=== PATIENT | female | born 1945 | race Caucasian/White ===

== ENCOUNTER 2016-04-30 10:51 | Outpatient (CLI) | payer MEDICARE, OTHER | END 2016-04-30 10:52 | disposition home or self-care (01) | DX: R10.9 Unspecified abdominal pain (principal) ==

== ENCOUNTER 2016-05-11 09:09 | Outpatient (CLI) | payer MEDICARE, OTHER ==
[2016-05-11] MEDS ORDERED: IOPAMIDOL-300 100 ML VIAL IVP ONE (10:45)
[2016-05-11] MEDS ORDERED: IOPAMIDOL-300 50 ML VIAL PO ONE (10:45)
== END 2016-05-11 09:10 | disposition home or self-care (01) ==
DX: R10.9 Unspecified abdominal pain (principal); G89.29 Other chronic pain; Z90.710 Acquired absence of both cervix and uterus
CPT/HCPCS: 74177; Q9967

== ENCOUNTER 2017-03-04 22:45 | Outpatient (CLI) | payer MEDICARE, OTHER | END 2017-03-04 22:46 | disposition critical access hospital (66) | LOC: EMS 22:45 | PROVIDERS: ATTEND Surgery | DX: R04.0 Epistaxis (principal) | CPT/HCPCS: A0425; A0429 ==

== ENCOUNTER 2017-03-04 22:59 | Emergency (ER) | payer MEDICARE, OTHER ==
--- NOTE | 2017-03-04 23:32 | ED Physician Documentation ---
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 No: Chest pain, Palpitations, Diaphoresis, Dyspnea, Abdominal pain, Nausea / vomiting Associated symptoms: None Contributing factors: Just stood up Injury occurred: None Pain level max: 0 Pain level now: 0 Similar symptoms before: Has not had sx before Recently seen: Not recently seen - Additional information Additional information: while at home and at rest, patient had sudden onset atraumatic left nare epistaxis. She then got up and went into the bathroom, applied pressure to the nose, but then felt lightheaded, generalized weakness, and felt like she was going to pass out. Family was present and they witnessed her then pass out, did not fall (went to ground slowly and controlled), LOC approximately 30 seconds with subsequent rapid return to baseline level of consciousness and asymptomatic since that time, arrives asymptomatic to ED Review of Systems Eyes: reports: Reviewed and negative Nose: reports: Epistaxis Cardiac: reports: Reviewed and negative Respiratory: reports: Reviewed and negative GI: reports: Reviewed and negative Neurologic: reports: Generalized weakness (pre-syncopal but then resolved), Syncope, LOC. denies: Focal weakness, Numbness, Seizure, Confused, Altered mental status, Headache, Head injury PD PAST MEDICAL HISTORY - Past Medical History Past Medical History: Yes Cardiovascular: Hypertension, High cholesterol, Valve disorder Respiratory: None Endocrine/Autoimmune: None GI: None WEB APPLICATION TESTER: None : None HEENT: None Psych: None Musculoskeletal: None Derm: None - Past Surgical History /WEB APPLICATION TESTER: Hysterectomy HEENT: Tonsil/Adenoidectomy - Present Medications Home Medications: Ambulatory Orders Medication Instructions Recorded Confirmed Aspirin 81 mg PO DAILY 03/04/17 03/04/17 Calcium Carbonate [[id number]] 1,000 mg PO DAILY 03/04/17 03/04/17 Cholecalciferol (Vitamin D3) 1,000 unit PO DAILY 03/04/17 03/04/17 [Vitamin D3] Diltiazem HCl [Diltiazem 24Hr ER] 180 mg PO DAILY 03/04/17 03/04/17 Lovastatin 20 mg PO DAILY 03/04/17 03/04/17 Magnesium Oxide [Magnesium] 500 mg PO DAILY 03/04/17 03/04/17 Potassium Chloride 20 meq PO DAILY 03/04/17 03/04/17 hydroCHLOROthiazide 25 mg PO DAILY 03/04/17 03/04/17 [Hydrochlorothiazide] - Allergies Allergies/Adverse Reactions: Allergies Allergy/AdvReac Type Severity Reaction Status Date / Time Penicillins Allergy Rash Verified 03/04/17 23:20 acetaminophen [From Vicodin] AdvReac Unknown Verified 03/04/17 23:20 atenolol AdvReac Dizziness Verified 03/04/17 23:20 epinephrine AdvReac Anxiety Verified 03/04/17 23:20 erythromycin base AdvReac Nausea Verified 03/04/17 23:20 hydrocodone [From Vicodin] AdvReac Unknown Verified 03/04/17 23:20 hydromorphone [From Dilaudid] AdvReac Dizziness Verified 03/04/17 23:20 phenylephrine AdvReac Anxiety Verified 03/04/17 23:20 procaine [From Novocain] AdvReac Anxiety Verified 03/04/17 23:20 propoxyphene [From Darvon] AdvReac Unknown Verified 03/04/17 23:20 sertraline [From Zoloft] AdvReac Cramps Verified 03/04/17 23:20 Sulfa (Sulfonamide AdvReac Edema Verified 03/04/17 23:20 Antibiotics) - Social History Does the pt smoke?: No Smoking Status: Never smoker Does the pt drink ETOH?: Yes Does the pt have substance abuse?: No - Immunizations Immunizations are current?: Yes PD ED PE NORMAL - Vitals Vital signs reviewed: Yes - General General: Alert and oriented X 3, No acute distress, Well developed/nourished - HEENT HEENT: Moist mucous membranes - Neck Neck: Supple, no meningeal sign, No bony TTP - Cardiac Cardiac: RRR - Respiratory Respiratory: No respiratory distress, Clear bilaterally - Abdomen Abdomen: Soft, Non tender - Derm Derm: Normal color, Warm and dry - Neuro Neuro: Alert and oriented X 3, seismic survey assistant 2-12 intact, No motor deficit, No sensory deficit, Normal speech Eye Opening: Spontaneous Motor: Obeys Commands Verbal: Oriented GCS Score: 15 PD ED PE EXPANDED - HEENT HEENT: Other (no active epistaxis noted. there is a punctate area left septum with trace dried/crusted blood but no active bleeding) - Cardiac Cardiac: Murmur Present (2/6 KATHRYN at cardiac base ) Results - Vitals Vitals: Vital Signs - 24 hr 03/04/17 03/05/17 03/05/17 23:04 00:21 01:10 Temperature 36.2 C L Heart Rate 74 75 73 Respiratory 16 15 20 Rate Blood Pressure 151/81 H 141/70 H 140/73 H O2 Saturation 91 L 98 96 Oxygen O2 Source Room air - Labs Labs: Laboratory Tests 03/05/17 03/05/17 03/05/17 00:15 00:15 00:15 WBC 8.7 RBC 4.10 L Hgb 12.5 Hct 36.8 L MCV 89.8 MCH 30.5 MCHC 33.9 RDW 13.2 Plt Count 251 MPV 8.0 Neut # 6.6 Lymph # 1.4 L [place] # 0.5 Eos # 0.1 Baso # 0.1 Absolute Nucleated RBC 0.00 Nucleated RBC % 0.0 Sodium 136 Potassium 3.3 L Chloride 100 L Carbon Dioxide 25 Anion Gap 11.0 BUN 20 Creatinine 0.7 Estimated GFR (MDRD) 83 L Glucose 112 H Calcium 8.9 Troponin I < 0.04 PD MEDICAL DECISION MAKING - ED course Complexity details: reviewed results, re-evaluated patient, considered differential, d/w patient ED course: syncope with unremarkable ED testing, and epistaxis that did not reoccur during ED stay. Departure - Departure Disposition: 01 Home, Self Care Clinical Impression: Hypokalemia, Syncope, Epistaxis Condition: Good Instructions: ED Nosebleed, ED Potassium Deficiency, ED Fainting Unkn Cause Discharge Date/Time: 03/05/17 01:20
[2017-03-05 00:25] LABS: BASOPHILS # (AUTO) 0.1 10^3/uL (0.0-0.1); BASOPHILS % (AUTO) 0.8 %; EOSINOPHILS # (AUTO) 0.1 10^3/uL (0.0-0.7); EOSINOPHILS % (AUTO) 1.2 %; HCT - HEMATOCRIT 36.8 % (37.0-47.0); HGB - HEMOGLOBIN 12.5 g/dL (12.0-16.0); LYMPHOCYTES # (AUTO) 1.4 10^3/uL (1.5-3.5); LYMPHOCYTES % (AUTO) 16.1 %; MEAN CORPUSCULAR HEMOGLOBIN 30.5 pg (27.0-31.0); MEAN CORPUSCULAR HGB CONC 33.9 g/dL (32.0-36.0); MEAN CORPUSCULAR VOLUME 89.8 fL (81.0-99.0); MONOCYTES # (AUTO) 0.5 10^3/uL (0.0-1.0); MONOCYTES % (AUTO) 5.7 %; NEUTROPHILS # (AUTO) 6.6 10^3/uL (1.5-6.6); NEUTROPHILS % (AUTO) 76.2 %; RED CELL DISTRIBUTION WIDTH 13.2 % (12.0-15.0); UNCORRECTED WHITE BLOOD COUNT 8.7 x10^3/uL; WHITE BLOOD COUNT 8.7 x10^3/uL (4.8-10.8)
--- NOTE | 2017-03-05 00:31 | XRAY Preliminary Report ---
Exam: XR CHEST 2 VIEW PA/LAT IMPRESSION: No acute cardiopulmonary abnormality demonstrated. [facility] SITE ID: [id number]
[2017-03-05 00:32] LABS: CALCIUM 8.9 mg/dL (8.5-10.3); CREATININE 0.7 mg/dL (0.4-1.0); POTASSIUM 3.3 mmol/L (3.5-5.0)
--- NOTE | 2017-03-05 00:33 | XRAY Report ---
EXAM: CHEST RADIOGRAPHY EXAM DATE: 03/05/2017 12:06 AM. CLINICAL HISTORY: Syncope. COMPARISON: None. TECHNIQUE: 2 views. FINDINGS: Lungs/Pleura: No focal opacities evident. No pleural effusion. No pneumothorax. Normal volumes. Mediastinum: Heart and mediastinal contours are unremarkable. Other: Right upper quadrant clips indicate prior cholecystectomy. IMPRESSION: No acute cardiopulmonary abnormality demonstrated. [facility] Referring Provider Line: [phone] SITE ID: [id number]
[2017-03-05] MEDS ORDERED: POTASSIUM BICARB 25 MEQ TABLET PO STA (00:55)
[2017-03-05] MEDS ORDERED: POTASSIUM BICARB 25 MEQ TABLET PO ONE (01:08)
[2017-03-05 01:11] VITALS: BP 140/73
== END 2017-03-05 01:20 | disposition home or self-care (01) ==
LOC: ED 22:59
DX: R55 Syncope and collapse (principal); R04.0 Epistaxis; E87.6 Hypokalemia; I10 Essential (primary) hypertension; E78.00 Pure hypercholesterolemia, unspecified; Z79.82 Long term (current) use of aspirin
CPT/HCPCS: 36415; 71020; 80048; 84484; 85025; 93005; 99284; A9270

== ENCOUNTER 2017-03-06 04:28 | Emergency (ER) | payer MEDICARE, OTHER ==
--- NOTE | 2017-03-06 04:43 | ED Physician Documentation ---
PD HPI HEENT - Stated complaint Stated Complaint: BLOODY NOSE - Chief complaint Chief Complaint: General - History obtained from History obtained from: Patient - History of Present Illness Timing - onset: Today Timing - details: Abrupt onset Pain level now: 0 Location: Nose Improves: Nothing Worsens: Other (no exacerbating factors) Recently seen: Emergency Dept - Additional information Additional information: T + R 2 days ago for epistaxis immediately followed by syncopal episode. she returns st this time due to recurrence of epistaxis Review of Systems Constitutional: denies: Fever Nose: reports: Epistaxis. denies: Rhinorrhea / runny nose, Congestion, Sinus pressure / pain Throat: denies: Sore throat PD PAST MEDICAL HISTORY - Past Medical History Cardiovascular: Hypertension, High cholesterol, Valve disorder Respiratory: None Endocrine/Autoimmune: None GI: None PIPE CHANGER: None : None HEENT: None Psych: None Musculoskeletal: None Derm: None - Past Surgical History /PIPE CHANGER: Hysterectomy HEENT: Tonsil/Adenoidectomy - Present Medications Home Medications: Ambulatory Orders Medication Instructions Recorded Confirmed Aspirin 81 mg PO DAILY 03/04/17 03/04/17 Calcium Carbonate [[id number]] 1,000 mg PO DAILY 03/04/17 03/04/17 Cholecalciferol (Vitamin D3) 1,000 unit PO DAILY 03/04/17 03/04/17 [Vitamin D3] Diltiazem HCl [Diltiazem 24Hr ER] 180 mg PO DAILY 03/04/17 03/04/17 Lovastatin 20 mg PO DAILY 03/04/17 03/04/17 Magnesium Oxide [Magnesium] 500 mg PO DAILY 03/04/17 03/04/17 Potassium Chloride 20 meq PO DAILY 03/04/17 03/04/17 hydroCHLOROthiazide 25 mg PO DAILY 03/04/17 03/04/17 [Hydrochlorothiazide] - Allergies Allergies/Adverse Reactions: Allergies Allergy/AdvReac Type Severity Reaction Status Date / Time Penicillins Allergy Rash Verified 03/04/17 23:20 acetaminophen [From Vicodin] AdvReac Unknown Verified 03/04/17 23:20 atenolol AdvReac Dizziness Verified 03/04/17 23:20 epinephrine AdvReac Anxiety Verified 03/04/17 23:20 erythromycin base AdvReac Nausea Verified 03/04/17 23:20 hydrocodone [From Vicodin] AdvReac Unknown Verified 03/04/17 23:20 hydromorphone [From Dilaudid] AdvReac Dizziness Verified 03/04/17 23:20 phenylephrine AdvReac Anxiety Verified 03/04/17 23:20 procaine [From Novocain] AdvReac Anxiety Verified 03/04/17 23:20 propoxyphene [From Darvon] AdvReac Unknown Verified 03/04/17 23:20 sertraline [From Zoloft] AdvReac Cramps Verified 03/04/17 23:20 Sulfa (Sulfonamide AdvReac Edema Verified 03/04/17 23:20 Antibiotics) - Social History Does the pt smoke?: No Smoking Status: Never smoker Does the pt drink ETOH?: Yes Does the pt have substance abuse?: No - Immunizations Immunizations are current?: Yes PD ED PE NORMAL - Vitals Vital signs reviewed: Yes - General General: Alert and oriented X 3, No acute distress, Well developed/nourished - HEENT HEENT: Moist mucous membranes, Pharynx benign PD ED PE EXPANDED - HEENT HEENT: Left nares epistaxis Results - Vitals Vitals: Oxygen O2 Source Room air Procedures - Epistaxis Site: Left Preparation: Afrin, Lidocaine Treatment: Silver Nitrate, Anterior rhinorocket Other: Other (unsuccessful attempt with silver nitrate (bleeding continued), and thus 4.5 rhinorocket placed which resulted in good. sustained hemostasis for remainder of ED stay (observed for 20 esha) PD MEDICAL DECISION MAKING - ED course Complexity details: reviewed old records, re-evaluated patient, considered differential, d/w patient Departure - Departure Disposition: 01 Home, Self Care Clinical Impression: Epistaxis Condition: Good Instructions: ED Nosebleed, ED Nasal Packing Anterior Removable Comments: Follow up with your primary care physician in 3-5 days for removal of the packing. Discharge Date/Time: 03/06/17 06:26
[2017-03-06] MEDS ORDERED: LIDOCAINE VISCOUS 2% 15 ML UDC MM ONE (04:46)
[2017-03-06] MEDS ORDERED: OXYMETAZOLINE NASAL SPRAY NAS ONE (04:46)
[2017-03-06 06:28] VITALS: BP 154/78
== END 2017-03-06 06:26 | disposition home or self-care (01) ==
LOC: ED 04:28
DX: R04.0 Epistaxis (principal); I10 Essential (primary) hypertension; E78.00 Pure hypercholesterolemia, unspecified; I38 Endocarditis, valve unspecified; Z79.82 Long term (current) use of aspirin
CPT/HCPCS: 30901; 99282; 99283; A9270

== ENCOUNTER 2017-03-22 08:33 | Outpatient (CLI) | payer MEDICARE, OTHER ==
[2017-03-22 13:33] LABS: BASOPHILS % (AUTO) 0.5 %; EOSINOPHILS # (AUTO) 0.1 10^3/uL (0.0-0.7); EOSINOPHILS % (AUTO) 2.5 %; HCT - HEMATOCRIT 36.6 % (37.0-47.0); HGB - HEMOGLOBIN 12.5 g/dL (12.0-16.0); LYMPHOCYTES # (AUTO) 1.1 10^3/uL (1.5-3.5); LYMPHOCYTES % (AUTO) 18.5 %; MEAN CORPUSCULAR HEMOGLOBIN 30.7 pg (27.0-31.0); MEAN CORPUSCULAR VOLUME 90.3 fL (81.0-99.0); MEAN PLATELET VOLUME 8.2 fL (7.9-10.8); MONOCYTES # (AUTO) 0.3 10^3/uL (0.0-1.0); MONOCYTES % (AUTO) 4.9 %; NEUTROPHILS # (AUTO) 4.4 10^3/uL (1.5-6.6); NEUTROPHILS % (AUTO) 73.6 %; RED BLOOD COUNT 4.06 10^6/uL (4.20-5.40); RED CELL DISTRIBUTION WIDTH 13.2 % (12.0-15.0)
[2017-03-22 13:43] LABS: ALBUMIN/GLOBULIN RATIO 1.4 (1.0-2.2); BILIRUBIN,TOTAL 0.5 mg/dL (0.2-1.0); BUN - BLOOD UREA NITROGEN 24 mg/dL (6-20); CARBON DIOXIDE - CO2 27 mmol/L (21-32); CHLORIDE 104 mmol/L (101-111); CHOL/HDL RATIO 2.3 (<4.4); CHOLESTEROL 217 mg/dL; CREATININE 0.8 mg/dL (0.4-1.0); GFR - MDRD 71 (>89); GLUCOSE 91 mg/dL (70-100); HDL CHOLESTEROL 94 mg/dL; LDL/HDL RATIO 1.1 (<4.4); SODIUM 139 mmol/L (135-145); TOTAL PROTEIN 7.1 g/dL (6.7-8.2); TRIGLYCERIDES 77 mg/dL; VLDL CHOLESTEROL 15 mg/dL
== END 2017-03-22 08:34 | disposition home or self-care (01) ==
LOC: LAB.WCP 08:33
PROVIDERS: ATTEND Family Medicine
DX: I10 Essential (primary) hypertension (principal); E78.5 Hyperlipidemia, unspecified
CPT/HCPCS: 36415; 80053; 80061; 85025

== ENCOUNTER 2017-08-11 14:41 | Emergency (ER) | payer MEDICARE, OTHER ==
--- NOTE | 2017-08-11 14:55 | ED Physician Documentation ---
PD HPI ABD PAIN - Stated complaint Stated Complaint: SOA, STOMACH PX, NAUSEA - History obtained from History obtained from: Patient - History of Present Illness Timing - onset: Today (72 yo woman with hx of hysterectomy, rectopexy with abdominal wall hernia and incidental appendectomy presents with gradual onset epigastric pain radiating to the sides but not the back starting around 1030 associated with nausea no vomiting. She also has fatigue. She has a specific concern for atypical IA. She also feels short of breath with it. The pain is dull, like a soreness or burning. She declines pain and/or nausea medicine on initial evaluation.) Review of Systems Ten Systems: 10 systems reviewed and negative Constitutional: denies: Fever, Chills Cardiac: denies: Chest pain / pressure, Palpitations, Pedal edema, Calf pain Respiratory: reports: Dyspnea. denies: Cough, Hemoptysis, Wheezing GI: reports: Abdominal Pain, Nausea. denies: Vomiting, Constipation, Diarrhea PD PAST MEDICAL HISTORY - Past Medical History Cardiovascular: Hypertension, High cholesterol, Valve disorder Respiratory: None Endocrine/Autoimmune: None GI: None SCRAP BALER: None : None HEENT: None Psych: None Musculoskeletal: None Derm: None - Past Surgical History /SCRAP BALER: Hysterectomy HEENT: Tonsil/Adenoidectomy - Present Medications Home Medications: Ambulatory Orders Medication Instructions Recorded Confirmed Aspirin 81 mg PO DAILY 03/04/17 03/04/17 Calcium Carbonate [[id number]] 1,000 mg PO DAILY 03/04/17 03/04/17 Cholecalciferol (Vitamin D3) 1,000 unit PO DAILY 03/04/17 03/04/17 [Vitamin D3] Diltiazem HCl [Diltiazem 24Hr ER] 180 mg PO DAILY 03/04/17 03/04/17 Lovastatin 20 mg PO DAILY 03/04/17 03/04/17 Magnesium Oxide [Magnesium] 500 mg PO DAILY 03/04/17 03/04/17 Potassium Chloride 20 meq PO DAILY 03/04/17 03/04/17 hydroCHLOROthiazide 25 mg PO DAILY 03/04/17 03/04/17 [Hydrochlorothiazide] Omeprazole [PriLOSEC] 20 mg PO DAILY #14 capsule 08/11/17 - Allergies Allergies/Adverse Reactions: Allergies Allergy/AdvReac Type Severity Reaction Status Date / Time Penicillins Allergy Rash Verified 08/11/17 14:55 atenolol AdvReac Dizziness Verified 08/11/17 14:55 epinephrine AdvReac Anxiety Verified 08/11/17 14:55 erythromycin base AdvReac Nausea Verified 08/11/17 14:55 hydrocodone [From Vicodin] AdvReac Unknown Verified 08/11/17 14:55 hydromorphone [From Dilaudid] AdvReac Dizziness Verified 08/11/17 14:55 phenylephrine AdvReac Anxiety Verified 08/11/17 14:55 procaine [From Novocain] AdvReac Anxiety Verified 08/11/17 14:55 propoxyphene [From Darvon] AdvReac Unknown Verified 08/11/17 14:55 sertraline [From Zoloft] AdvReac Cramps Verified 08/11/17 14:55 Sulfa (Sulfonamide AdvReac Edema Verified 08/11/17 14:55 Antibiotics) - Social History Does the pt smoke?: No Smoking Status: Never smoker Does the pt drink ETOH?: Yes Does the pt have substance abuse?: No - Immunizations Immunizations are current?: Yes PD ED PE NORMAL - Vitals Vital signs reviewed: Yes - General General: Alert and oriented X 3, No acute distress - HEENT HEENT: PERRL, EOMI - Neck Neck: Supple, no meningeal sign, No bony TTP - Cardiac Cardiac: RRR, No murmur - Respiratory Respiratory: No respiratory distress, Clear bilaterally - Abdomen Abdomen: Normal bowel sounds, Soft, Other (She is tender in the epigastrium and right upper quadrant with positive Lewis sign.) - Back Back: No CVA TTP - Derm Derm: Normal color, Warm and dry - Extremities Extremities: No edema, No calf tenderness / cord - Neuro Neuro: Alert and oriented X 3, Normal speech - Psych Psych: Normal mood, Normal affect Results - Vitals Vitals: Vital Signs - 24 hr 08/11/17 08/11/17 08/11/17 14:45 15:31 16:02 Temperature 36.5 C Heart Rate 64 65 65 Respiratory 16 21 28 H Rate Blood Pressure 168/87 H 158/73 H O2 Saturation 98 98 98 08/11/17 17:38 Temperature Heart Rate 81 Respiratory 17 Rate Blood Pressure 137/61 H O2 Saturation 99 Oxygen O2 Source Room air - EKG (time done) 1455 Rate: Rate (enter#) (64) Rhythm: NSR [place]: Normal Intervals: Normal HI QRS: Normal Ischemia: Non specific changes Computer interpretation: Agree with computer - Labs Labs: Laboratory Tests 08/11/17 08/11/17 08/11/17 15:10 15:10 15:10 WBC 5.9 RBC 4.33 Hgb 13.3 Hct 38.2 MCV 88.2 MCH 30.7 MCHC 34.9 RDW 13.3 Plt Count 247 MPV 7.7 L Neut # 3.8 Lymph # 1.6 [place] # 0.3 Eos # 0.1 Baso # 0.1 Absolute Nucleated RBC 0.00 Nucleated RBC % 0.0 Sodium 131 L Potassium 3.2 L Chloride 95 L Carbon Dioxide 27 Anion Gap 9.0 BUN 24 H Creatinine 0.7 Estimated GFR (MDRD) 83 L Glucose 96 Calcium 9.4 Total Bilirubin 0.4 AST 22 ALT 19 Alkaline Phosphatase 67 Troponin I < 0.04 Total Protein 7.6 Albumin 4.5 Globulin 3.1 Albumin/Globulin Ratio 1.5 Lipase 23 - Rads (name of study) RUQ sono Radiology: EMP read contemporaneously (normal) CT A/P Radiology: EMP read contemporaneously (normal) PD MEDICAL DECISION MAKING - ED course ED course: 72-year-old woman with epigastric pain, her main concern was for atypical presentation of IA but there is no evidence of this on diagnostics. She was tender, ultrasound was done and negative, this was followed by GI cocktail with relief of her pain and a negative CAT scan. The above all suggest gastritis. Departure - Departure Disposition: 01 Home, Self Care Clinical Impression: Abdominal pain Qualifiers: Abdominal location: epigastric Qualified Code(s): R10.13 - Epigastric pain Gastritis Qualifiers: Gastritis type: unspecified gastritis Chronicity: acute Gastritis bleeding: without bleeding Qualified Code(s): K29.00 - Acute gastritis without bleeding Condition: Good Record reviewed to determine appropriate education?: Yes Instructions: ED Gastritis Prescriptions: Omeprazole [PriLOSEC] 20 mg PO DAILY #14 capsule Comments: Call your doctor to arrange a follow-up appointment, make the next available appointment. In the interim, return anytime if worse or if new symptoms develop. Your blood pressure was elevated today on check into the emergency department. This does not mean that you have hypertension, it is a common phenomenon to come to the emergency department and have elevated blood pressure. I recommend that you see your primary care physician within the week to have it rechecked when you are feeling better.
[2017-08-11 15:18] LABS: BASOPHILS # (AUTO) 0.1 10^3/uL (0.0-0.1); EOSINOPHILS # (AUTO) 0.1 10^3/uL (0.0-0.7); EOSINOPHILS % (AUTO) 2.4 %; HGB - HEMOGLOBIN 13.3 g/dL (12.0-16.0); LYMPHOCYTES # (AUTO) 1.6 10^3/uL (1.5-3.5); LYMPHOCYTES % (AUTO) 27.3 %; MEAN CORPUSCULAR HEMOGLOBIN 30.7 pg (27.0-31.0); MEAN CORPUSCULAR HGB CONC 34.9 g/dL (32.0-36.0); MEAN CORPUSCULAR VOLUME 88.2 fL (81.0-99.0); MEAN PLATELET VOLUME 7.7 fL (7.9-10.8); MONOCYTES # (AUTO) 0.3 10^3/uL (0.0-1.0); MONOCYTES % (AUTO) 5.5 %; NEUTROPHILS # (AUTO) 3.8 10^3/uL (1.5-6.6); NEUTROPHILS % (AUTO) 63.8 %; PLT - PLATELET COUNT 247 10^3/uL (130-450); RED BLOOD COUNT 4.33 10^6/uL (4.20-5.40); RED CELL DISTRIBUTION WIDTH 13.3 % (12.0-15.0); WHITE BLOOD COUNT 5.9 x10^3/uL (4.8-10.8)
[2017-08-11 15:31] LABS: ALBUMIN 4.5 g/dL (3.2-5.5); ALBUMIN/GLOBULIN RATIO 1.5 (1.0-2.2); BILIRUBIN,TOTAL 0.4 mg/dL (0.2-1.0); CALCIUM 9.4 mg/dL (8.5-10.3); CREATININE 0.7 mg/dL (0.4-1.0); TOTAL PROTEIN 7.6 g/dL (6.7-8.2)
--- NOTE | 2017-08-11 17:04 | Ultrasound Report ---
EXAM: ABDOMEN ULTRASOUND LIMITED, RUQ EXAM DATE: 08/11/2017 04:44 PM. CLINICAL HISTORY: Abdominal pain COMPARISON: 05/11/2016. TECHNIQUE: Real-time scanning was performed with static images obtained. FINDINGS: Liver: Submitted images of liver demonstrate no suspicious focal lesions. Main portal vein flow: Hepa topetal. Gallbladder: No stones, wall thickening, or sonographic Lewis's sign. Biliary System: CBD measures 4 mm. No intrahepatic or extrahepatic ductal dilatation. Other: The visualized pancreas and right kidney are unremarkable. IMPRESSION: Negative right upper quadrant ultrasound. [facility] Referring Provider Line: [phone] SITE ID: [id number]
[2017-08-11] MEDS ORDERED: IOPAMIDOL-300 100 ML VIAL ONE (17:15)
[2017-08-11] MEDS ORDERED: MAG HYDROX/AL HYDROX/SIMETH 30 ML UDC PO STA (17:16)
[2017-08-11] MEDS ORDERED: LIDOCAINE VISCOUS 2% 15 ML UDC MM STA (17:16)
[2017-08-11 17:41] VITALS: BP 137/61
[2017-08-11] MEDS ORDERED: IOPAMIDOL-300 100 ML VIAL IVP ONE (18:12)
--- NOTE | 2017-08-11 18:24 | CT Report ---
EXAM: CT ABDOMEN AND PELVIS EXAM DATE: 08/11/2017 06:04 PM. CLINICAL HISTORY: Abdominal pain COMPARISONS: 05/11/2016. TECHNIQUE: Routine helical CT imaging was performed through the abdomen and pelvis. IV contrast: ISOV UE 300 100mL. Enteric contrast: No. Reconstructions: Coronal and sagittal. In accordance with CT protocol optimization, one or more of the following dose reduction techniques w ere utilized for this exam: automated exposure control, adjustment of mA and/or KV based on patient s ize, or use of iterative reconstructive technique. FINDINGS: Lung Bases: Unremarkable. Liver: Normal. No masses. Gallbladder/Bile Ducts: Unremarkable. Spleen: Normal. Pancreas: Normal. Adrenal Glands: Normal. Kidneys: Normal. No masses or hydronephrosis. Peritoneal Cavity/Bowel: No free fluid, free air or adenopathy. No masses or acute inflammatory proce ss. The appendix is well visualized and normal. Pelvic Organs: Normal. The bladder and visualized pelvic organs are within normal limits. Vasculature: No aneurysms or other significant abnormality. Bones: No significant abnormality. Other: None. IMPRESSION: Negative abdomen and pelvis CT. [facility] Referring Provider Line: [phone] SITE ID: [id number]
== END 2017-08-11 19:00 | disposition home or self-care (01) ==
LOC: ED 14:41
DX: K29.00 Acute gastritis without bleeding (principal); I10 Essential (primary) hypertension; Z79.82 Long term (current) use of aspirin; Z90.710 Acquired absence of both cervix and uterus
CPT/HCPCS: 36415; 74177; 76705; 80053; 83690; 84484; 85025; 93005; 99283; A9270; Q9967

== ENCOUNTER 2017-08-19 08:00 | Outpatient (CLI) | payer MEDICARE, OTHER ==
[2017-08-19 19:30] LABS: H. PYLORIS ANTIGEN STL NEGATIVE (Negative)
== END 2017-08-19 08:01 | disposition home or self-care (01) ==
LOC: LAB.WCP 08:00
PROVIDERS: ATTEND Family Medicine
DX: R10.13 Epigastric pain (principal)
CPT/HCPCS: 87338

== ENCOUNTER 2019-04-26 08:00 | Outpatient (CLI) | payer MEDICARE, OTHER ==
[2019-04-26 18:55] LABS: BASOPHILS % (AUTO) 0.5 %; EOSINOPHILS # (AUTO) 0.1 10^3/uL (0.0-0.7); EOSINOPHILS % (AUTO) 2.6 %; HGB - HEMOGLOBIN 12.7 g/dL (12.0-16.0); LYMPHOCYTES # (AUTO) 1.4 10^3/uL (1.5-3.5); LYMPHOCYTES % (AUTO) 26.2 %; MEAN CORPUSCULAR HEMOGLOBIN 30.5 pg (27.0-31.0); MEAN CORPUSCULAR HGB CONC 32.8 g/dL (32.0-36.0); MEAN CORPUSCULAR VOLUME 92.8 fL (81.0-99.0); MEAN PLATELET VOLUME 10.4 fL (7.9-10.8); MONOCYTES # (AUTO) 0.4 10^3/uL (0.0-1.0); MONOCYTES % (AUTO) 6.4 %; NEUTROPHILS # (AUTO) 3.5 10^3/uL (1.5-6.6); NEUTROPHILS % (AUTO) 64.1 %; PLT - PLATELET COUNT 279 10^3/uL (130-450); RED BLOOD COUNT 4.17 10^6/uL (4.20-5.40); RED CELL DISTRIBUTION WIDTH 13.2 % (12.0-15.0); WHITE BLOOD COUNT 5.5 x10^3/uL (4.8-10.8)
[2019-04-26 19:12] LABS: ALBUMIN 4.1 g/dL (3.2-5.5); ALBUMIN/GLOBULIN RATIO 1.2 (1.0-2.2); ALKALINE PHOSPHATASE 54 IU/L (42-121); ALT ALANINE AMINOTRANSFERASE 15 IU/L (10-60); AST ASPARTATE AMINOTRANSFERASE 18 IU/L (10-42); BILIRUBIN,TOTAL 0.3 mg/dL (0.2-1.0); BUN - BLOOD UREA NITROGEN 23 mg/dL (6-20); CALCIUM 9.7 mg/dL (8.5-10.3); CARBON DIOXIDE - CO2 27 mmol/L (21-32); CHLORIDE 101 mmol/L (101-111); CHOL/HDL RATIO 2.8 (<4.4); CHOLESTEROL 207 mg/dL; CREATININE 0.9 mg/dL (0.4-1.0); GFR - MDRD 62 (>89); GLUCOSE 77 mg/dL (70-100); HDL CHOLESTEROL 74 mg/dL; LDL CHOLESTEROL,CALCULATED 102 mg/dL; LDL/HDL RATIO 1.4 (<4.4); SODIUM 138 mmol/L (135-145); TOTAL PROTEIN 7.5 g/dL (6.7-8.2); VLDL CHOLESTEROL 31 mg/dL
[2019-04-27 12:54] LABS: HEPATITIS C ANTIBODY NON-REACTIVE (NON-REACTIVE)
== END 2019-04-26 23:59 | disposition home or self-care (01) ==
LOC: LAB.WCP 08:00
PROVIDERS: ATTEND Family Medicine
DX: I10 Essential (primary) hypertension (principal); E78.5 Hyperlipidemia, unspecified; Z11.59 Encounter for screening for other viral diseases
CPT/HCPCS: 36415; 80053; 80061; 83721; 85025; 86803

== ENCOUNTER 2019-05-30 14:34 | Outpatient (CLI) | payer MEDICARE ==
--- NOTE | 2019-05-31 10:05 | Mammography Report ---
Reason: ROUTINE MAMMO Procedure Date: 05/30/2019 Accession Number: [id number] / [id number] Procedure: LAURENCE - Screening Mammo w/Fawad CPT Code: Final Report FULL RESULT: EXAM: Screening Mammo w/Fawad DATE: 05/30/2019 3:14 PM CLINICAL HISTORY: Screening encounter. TECHNIQUE: (B) - Bilateral CC and MLO views were obtained. COMPARISON: 07/01/2015 through 07/19/2009. PARENCHYMAL PATTERN: (A) - The breast(s) demonstrate(s) scattered fibroglandular densities. FINDINGS: Not definitely seen previously in the right central posterior breast 8 cm from the nipple is a 3 mm well-circumscribed isodense nodule also demonstrated on CC image 23, not definitely localized on the MLO projection. This requires further characterization by right breast ultrasound. There are no suspicious masses, calcifications, or areas of distortion in the left breast. IMPRESSION: Incomplete examination. BI-RADS category 0. RECOMMENDATION: (ADDUS) - Targeted ultrasound recommended. Right breast. BI-RADS CATEGORY: (0) - Incomplete Examination - need additional evaluation. STANDARD QUALIFYING STATEMENTS: 1. This examination was not reviewed with the aid of Computer-Aided Detection (CAD). 2. A negative or benign imaging report should not preclude biopsy if clinically suspicious findings are present. 3. Dense breasts may obscure an underlying neoplasm. 4. This examination was reviewed with the aid of 3D breast imaging (tomosynthesis).
== END 2019-05-30 14:35 | disposition home or self-care (01) ==
LOC: DI 14:34
DX: Z12.31 Encounter for screening mammogram for malignant neoplasm of breast (principal); N63.10 Unspecified lump in the right breast, unspecified quadrant
CPT/HCPCS: 77063; 77067

== ENCOUNTER 2019-06-14 10:48 | Outpatient (CLI) | payer MEDICARE ==
--- NOTE | 2019-06-14 15:23 | Ultrasound Report ---
Reason: SPEC VIEWS RT BREAST US,ABN MAMMO Procedure Date: 06/14/2019 Accession Number: [id number] / [id number] Procedure: US - Breast Unilateral Limited CPT Code: Final Report FULL RESULT: EXAM: Breast Unilateral Limited DATE: 06/14/2019 12:16 PM CLINICAL HISTORY: Diagnostic examination. The patient is recalled from screening for a 3 mm well-circumscribed isodense nodule in the right breast. COMPARISON: 05/30/2019. TECHNIQUE: Targeted ultrasound was performed of the right breast in the area of clinical concern at 9 o'clock and 4 distance from the nipple. Color Doppler was employed as appropriate. FINDINGS: A 0.3 cm well-circumscribed cyst with increased through transmission is identified which corresponds in size and location to the mammographic finding. There is no solid soft tissue component and no internal septations. The findings typically benign. No suspicious mass or architectural distortion is identified. IMPRESSION: Benign findings RECOMMENDATION: Recommend routine annual Screening mammography unless otherwise clinically indicated. BIRADS CATEGORY 2: Benign findings [facility]
== END 2019-06-14 10:49 | disposition home or self-care (01) ==
LOC: DI 10:48
PROVIDERS: ATTEND Family Medicine
DX: N60.01 Solitary cyst of right breast (principal)
CPT/HCPCS: 76642

== ENCOUNTER 2020-09-25 08:00 | Outpatient (CLI) | payer MEDICARE ==
[2020-09-25 18:03] LABS: BASOPHILS # (AUTO) 0.1 10^3/uL (0.0-0.1); BASOPHILS % (AUTO) 0.8 %; EOSINOPHILS # (AUTO) 0.2 10^3/uL (0.0-0.7); EOSINOPHILS % (AUTO) 2.5 %; HCT - HEMATOCRIT 38.2 % (37.0-47.0); HGB - HEMOGLOBIN 12.7 g/dL (12.0-16.0); LYMPHOCYTES # (AUTO) 1.5 10^3/uL (1.5-3.5); LYMPHOCYTES % (AUTO) 24.3 %; MEAN CORPUSCULAR HEMOGLOBIN 31.1 pg (27.0-31.0); MEAN CORPUSCULAR HGB CONC 33.2 g/dL (32.0-36.0); MEAN CORPUSCULAR VOLUME 93.4 fL (81.0-99.0); MEAN PLATELET VOLUME 10.5 fL (7.9-10.8); MONOCYTES # (AUTO) 0.4 10^3/uL (0.0-1.0); MONOCYTES % (AUTO) 6.1 %; PLT - PLATELET COUNT 267 10^3/uL (130-450); RED BLOOD COUNT 4.09 10^6/uL (4.20-5.40); RED CELL DISTRIBUTION WIDTH 13.2 % (12.0-15.0); WHITE BLOOD COUNT 6.1 x10^3/uL (4.8-10.8)
[2020-09-25 18:28] LABS: ALBUMIN 4.3 g/dL (3.2-5.5); ALBUMIN/GLOBULIN RATIO 1.4 (1.0-2.2); ALKALINE PHOSPHATASE 60 IU/L (42-121); ALT ALANINE AMINOTRANSFERASE 20 IU/L (10-60); AST ASPARTATE AMINOTRANSFERASE 22 IU/L (10-42); BILIRUBIN,TOTAL 0.7 mg/dL (0.2-1.0); BUN - BLOOD UREA NITROGEN 25 mg/dL (6-20); CALCIUM 9.4 mg/dL (8.5-10.3); CARBON DIOXIDE - CO2 28 mmol/L (21-32); CHLORIDE 101 mmol/L (101-111); CHOL/HDL RATIO 2.5 (<4.4); CHOLESTEROL 204 mg/dL; CREATININE 1.1 mg/dL (0.4-1.0); GFR - MDRD 49 (>89); GLUCOSE 118 mg/dL (70-100); HDL CHOLESTEROL 82 mg/dL; LDL CHOLESTEROL,CALCULATED 76 mg/dL; LDL/HDL RATIO 0.9 (<4.4); POTASSIUM 3.5 mmol/L (3.5-5.0); SODIUM 138 mmol/L (135-145); TOTAL PROTEIN 7.3 g/dL (6.7-8.2); TRIGLYCERIDES 229 mg/dL; VLDL CHOLESTEROL 46 mg/dL
[2020-09-25 18:37] LABS: THYROID STIMULATING HORMONE 1.92 uIU/mL (0.34-5.60)
== END 2020-09-25 23:59 | disposition home or self-care (01) ==
LOC: LAB.WCP 08:00
PROVIDERS: ATTEND Family Medicine
DX: I10 Essential (primary) hypertension (principal); E78.5 Hyperlipidemia, unspecified
CPT/HCPCS: 36415; 80053; 80061; 83721; 84443; 85025

== ENCOUNTER 2021-01-16 13:40 | Outpatient (CLI) | payer MEDICARE ==
--- NOTE | 2021-01-17 07:46 | Mammography Report ---
BILATERAL DIGITAL SCREENING MAMMOGRAM 3D/2D: 01/16/2021 CLINICAL: Routine screening. Comparison is made to exams dated: 06/14/2019 mammogram, 05/30/2019 mammogram, and 07/01/2015 mammogram - [facility]. There are scattered fibroglandular elements in both breasts. No significant masses, calcifications, or other findings are seen in either breast. There has been no significant interval change. IMPRESSION: NEGATIVE There is no mammographic evidence of malignancy. A 1 year screening mammogram is recommended. This exam was interpreted at Station ID: [id number]. NOTE: For mammograms, a report in lay terms will be sent to the patient. Approximately 15% of breast malignancies will not be visualized mammographically. In the management of a palpable breast mass, a negative mammogram must not discourage biopsy of a clinically suspicious lesion. Electronically Signed By: Darron joshi/eyad:01/16/2021 17:02:32 ACR BI-RADS Category 1: Negative [id number] PARENCHYMAL PATTERN: (A) - The breast(s) demonstrate(s) scattered fibroglandular densities. BI-RADS CATEGORY: (1) - 1 RECOMMENDATION: (ANNUAL) - Recommend routine annual screening mammography. [id number] 1 year screening LATERALITY: (B)
== END 2021-01-16 13:41 | disposition home or self-care (01) ==
LOC: DI 13:40
DX: Z12.31 Encounter for screening mammogram for malignant neoplasm of breast (principal)

== ENCOUNTER 2021-01-22 09:38 | Outpatient (CLI) | payer MEDICARE ==
--- NOTE | 2021-01-22 16:15 | DEXA Report ---
PROCEDURE: Dexa Spine and/or Hip INDICATIONS: OSTEOPENIA TECHNIQUE: Dual energy x-ray absorptiometry (DXA) was performed on a [employer]teX[employer]ream System. Regions measur ed are the AP Spine, femoral neck, and if needed forearm. COMPARISON: 01/16/2016. FINDINGS: Lumbar Spine: Bone Mineral Density 1.060 g/cm/cm,T score -1.0, normal Left Hip: Bone Mineral Density 0.906 g/cm/cm,T score -0.8, normal Femoral Neck: Bone Mineral Density 0.817 g/cm/cm, T score -1.6, osteopenia (T score greater or equal to -1.0: NORMAL) (T score from -1.1 to -2.4: OSTEOPENIA) (T score less than or equal to -2.5 to: OSTEOPOROSIS) Impression: Osteopenia. Bone mineral density has increased 3% in the interval since prior examination obtained 01/15/2017. Patients with diagnosis of osteoporosis or osteopenia should have regular bone mineral density assess ment. For those eligible for Medicare, routine testing is allowed once every 2 years. Testing frequ ency can be increased for patients who have rapidly progressing disease or for those who are receivin g medical therapy to restore bone mass. Reviewed by: Socorro England MD, PhD on 01/22/2021 4:14 PM PDT Approved by: Socorro England MD, PhD on 01/22/2021 4:14 PM PDT Station ID: [id number]
== END 2021-01-22 09:39 | disposition home or self-care (01) ==
LOC: DI 09:38
PROVIDERS: ATTEND Family Medicine
DX: M85.88 Other specified disorders of bone density and structure, other site (principal)

== ENCOUNTER 2022-05-07 14:27 | Outpatient (CLI) | payer MEDICARE ==
--- NOTE | 2022-05-11 10:18 | Mammography Report ---
BILATERAL DIGITAL SCREENING MAMMOGRAM 3D/2D: 05/07/2022 CLINICAL: Routine screening. Comparison is made to exams dated: 01/16/2021 mammogram, 06/14/2019 mammogram, 05/30/2019 mammogram, 06/11 mammogram, 03/22/2014 mammogram, and 02/18/2013 mammogram - [facility]. There are scattered areas of fibroglandular density in both breasts (category b / 25%-50% glandular t issue). No significant masses, calcifications, or other findings are seen in either breast. There has been no significant interval change. IMPRESSION: NEGATIVE There is no mammographic evidence of malignancy. A 1 year screening mammogram is recommended. Based on the Tyrer Cuzick model (a risk assessment model) the patients lifetime risk is 2.4% and her 10 year risk is 2.4%. According to the ACR, ACS, and NCCN guidelines, an annual breast MRI exam robyn g with mammogram is recommended if the patients lifetime risk is 20% or greater. This exam was interpreted at Station ID: [id number]. NOTE: For mammograms, a report in lay terms will be sent to the patient. Approximately 15% of breast malignancies will not be visualized mammographically. In the management of a palpable breast mass, a negative mammogram must not discourage biopsy of a clinically suspicious lesion. Electronically Signed By: Luis Eduardo manuel/eyad:05/08/2022 18:11:15 ACR BI-RADS Category 1: Negative 3341F PARENCHYMAL PATTERN: (A) - The breast(s) demonstrate(s) scattered fibroglandular densities. BI-RADS CATEGORY: (1) - 1 RECOMMENDATION: (ANNUAL) - Recommend routine annual screening mammography. [id number] 1 year screening LATERALITY: (B)
== END 2022-05-07 14:28 | disposition home or self-care (01) ==
LOC: DI 14:27
DX: Z12.31 Encounter for screening mammogram for malignant neoplasm of breast (principal)

== ENCOUNTER 2023-02-19 09:16 | Outpatient (CLI) | payer MEDICARE ==
[2023-02-19 09:36] LABS: BASOPHILS % (AUTO) 0.8 %; EOSINOPHILS # (AUTO) 0.1 10^3/uL (0.0-0.7); EOSINOPHILS % (AUTO) 2.2 %; HCT - HEMATOCRIT 38.8 % (37.0-47.0); HGB - HEMOGLOBIN 12.9 g/dL (12.0-16.0); LYMPHOCYTES # (AUTO) 1.3 10^3/uL (1.5-3.5); LYMPHOCYTES % (AUTO) 26.3 %; MEAN CORPUSCULAR HGB CONC 33.2 g/dL (32.0-36.0); MEAN CORPUSCULAR VOLUME 90.2 fL (81.0-99.0); MEAN PLATELET VOLUME 9.2 fL (7.9-10.8); MONOCYTES # (AUTO) 0.3 10^3/uL (0.0-1.0); MONOCYTES % (AUTO) 6.5 %; NEUTROPHILS # (AUTO) 3.3 10^3/uL (1.5-6.6); NEUTROPHILS % (AUTO) 63.8 %; PLT - PLATELET COUNT 246 10^3/uL (130-450); RED CELL DISTRIBUTION WIDTH 12.8 % (12.0-15.0); WHITE BLOOD COUNT 5.1 x10^3/uL (4.8-10.8)
[2023-02-19 09:52] LABS: ALBUMIN 4.3 g/dL (3.2-5.5); ALBUMIN/GLOBULIN RATIO 1.4 (1.0-2.2); ALKALINE PHOSPHATASE 63 IU/L (42-121); ALT ALANINE AMINOTRANSFERASE 14 IU/L (10-60); AST ASPARTATE AMINOTRANSFERASE 18 IU/L (10-42); BILIRUBIN,TOTAL 0.5 mg/dL (0.2-1.0); BUN - BLOOD UREA NITROGEN 21 mg/dL (6-20); CALCIUM 9.1 mg/dL (8.5-10.3); CARBON DIOXIDE - CO2 28 mmol/L (21-32); CHLORIDE 99 mmol/L (101-111); CHOL/HDL RATIO 2.9 (<4.4); CHOLESTEROL 187 mg/dL; CREATININE 0.9 mg/dL (0.6-1.3); GFR - MDRD 61 (>89); GLUCOSE 85 mg/dL (74-104); HDL CHOLESTEROL 64 mg/dL; LDL CHOLESTEROL,CALCULATED 97 mg/dL; LDL/HDL RATIO 1.5 (<4.4); POTASSIUM 3.9 mmol/L (3.5-4.5); SODIUM 133 mmol/L (135-145); TOTAL PROTEIN 7.3 g/dL (6.4-8.9); TRIGLYCERIDES 129 mg/dL (48-352); VLDL CHOLESTEROL 26 mg/dL
== END 2023-02-19 09:17 | disposition home or self-care (01) ==
LOC: LAB 09:16
PROVIDERS: ATTEND Nurse Practitioner Family
DX: I10 Essential (primary) hypertension (principal); E78.5 Hyperlipidemia, unspecified; I34.1 Nonrheumatic mitral (valve) prolapse
CPT/HCPCS: 36415; 80053; 80061; 83721; 84443; 85025

== ENCOUNTER 2023-03-19 09:27 | Outpatient (CLI) | payer MEDICARE ==
[2023-03-19 09:49] LABS: CALCIUM 9.4 mg/dL (8.5-10.3); CREATININE 0.9 mg/dL (0.6-1.3); POTASSIUM 4.1 mmol/L (3.5-4.5)
== END 2023-03-19 09:28 | disposition home or self-care (01) ==
LOC: LAB 09:27
PROVIDERS: ATTEND Physician Assistant
DX: E87.1 Hypo-osmolality and hyponatremia (principal)
CPT/HCPCS: 36415; 80048

== ENCOUNTER 2023-09-15 08:10 | Outpatient (CLI) | payer MEDICARE | END 2023-09-15 23:59 | disposition critical access hospital (66) | LOC: EMS 08:10 | DX: R50.9 Fever, unspecified (principal); R06.02 Shortness of breath; R11.0 Nausea | CPT/HCPCS: A0425; A0427 ==

== ENCOUNTER 2023-09-15 08:23 | Emergency (ER) | payer MEDICARE ==
[2023-09-15] MEDS: cefTRIAXone 2 GM VIAL IVP STA (09:16)
[2023-09-15] MEDS: ONDANSETRON 4 MG/2 ML VIAL IVP STA (09:16)
[2023-09-15] MEDS: SODIUM CHLORIDE 0.9% 1,000 ML IV STA (09:16)
[2023-09-15 09:21] LABS: BASOPHILS % (AUTO) 0.2 %; EOSINOPHILS % (AUTO) 0.2 %; HCT - HEMATOCRIT 37.7 % (37.0-47.0); HGB - HEMOGLOBIN 12.5 g/dL (12.0-16.0); LYMPHOCYTES # (AUTO) 0.8 10^3/uL (1.5-3.5); LYMPHOCYTES % (AUTO) 4.8 %; MEAN CORPUSCULAR HEMOGLOBIN 29.8 pg (27.0-31.0); MEAN CORPUSCULAR HGB CONC 33.2 g/dL (32.0-36.0); MEAN PLATELET VOLUME 9.4 fL (7.9-10.8); MONOCYTES # (AUTO) 0.7 10^3/uL (0.0-1.0); MONOCYTES % (AUTO) 4.1 %; NEUTROPHILS # (AUTO) 14.9 10^3/uL (1.5-6.6); NEUTROPHILS % (AUTO) 89.5 %; PLT - PLATELET COUNT 235 10^3/uL (130-450); RED BLOOD COUNT 4.19 10^6/uL (4.20-5.40); RED CELL DISTRIBUTION WIDTH 12.7 % (12.0-15.0); WHITE BLOOD COUNT 16.6 x10^3/uL (4.8-10.8)
[2023-09-15 09:21] LABS: BILIRUBIN,URINE NEGATIVE (NEGATIVE); GLUCOSE, URINE (UA) NEGATIVE (NEGATIVE); KETONES,URINE (UA) TRACE mg/dL (NEGATIVE); LEUKOCYTE ESTERASE, URINE SMALL (NEGATIVE); NITRITE,URINE NEGATIVE (NEGATIVE); OCCULT BLOOD,URINE TRACE-INTA (NEGATIVE); PROTEIN,URINE NEGATIVE (NEGATIVE); UROBILINOGEN,URINE 0.2 (NORMAL) E.U./dL (NORMAL)
--- NOTE | 2023-09-15 09:26 | ED Physician Documentation ---
History of Present Illness - Stated complaint Stated Complaint: FEELING BAD - Chief complaint Chief Complaint: General - History obtained from History obtained from: Patient, Family - Additonal information Additional information: 78-year-old female presents from home for feeling poorly. For the last week she has had an upper respiratory infection with nonproductive cough, sore throat, nasal congestion. This morning the patient felt worse, with generalized weakness and a flushed feeling. She lay on the floor because it was "cooler" and had to help get her off the floor. Patient noted to have redness and swelling of her face including her cheeks and forehead. Patient states that she had a spot on her nose that she popped 3 days ago prior to onset of facial swelling. Review of Systems Constitutional: reports: Fever, Chills. denies: Myalgias, Fatigue Eyes: denies: Loss of vision, Decreased vision, Photophobia Nose: reports: Congestion Throat: reports: Sore throat. denies: Dental pain / toothache, Oral lesions / sores GI: denies: Abdominal Pain, Nausea, Vomiting Neurologic: denies: Generalized weakness, Focal weakness, Numbness PD PAST MEDICAL HISTORY - Past Medical History Cardiovascular: Hypertension, High cholesterol, Valve disorder Respiratory: None Endocrine/Autoimmune: None GI: None ABSTRACT CLERK: None : None HEENT: None Psych: None Musculoskeletal: None Derm: None - Past Surgical History Past Surgical History: Yes General: Bowel surgery, Other /ABSTRACT CLERK: Hysterectomy HEENT: Tonsil/Adenoidectomy - Present Medications Home Medications: Ambulatory Orders Medication Instructions Recorded Confirmed Aspirin 81 mg PO DAILY 03/04/17 03/04/17 Calcium Carbonate [[id number]] 1,000 mg PO DAILY 03/04/17 03/04/17 Cholecalciferol (Vitamin D3) 1,000 unit PO DAILY 03/04/17 03/04/17 [Vitamin D3] Lovastatin 20 mg PO DAILY 03/04/17 03/04/17 Magnesium Oxide [Magnesium] 500 mg PO DAILY 03/04/17 03/04/17 Potassium Chloride 20 meq PO DAILY 03/04/17 03/04/17 dilTIAZem HCl [Diltiazem 24Hr ER] 180 mg PO DAILY 03/04/17 03/04/17 hydroCHLOROthiazide 25 mg PO DAILY 11/23/17 11/23/17 [Hydrochlorothiazide] Omeprazole [PriLOSEC] 20 mg PO DAILY #14 capsule 08/11/17 Clindamycin [Cleocin] 450 mg PO TID 7 Days #63 cap 09/15/23 - Allergies Allergies/Adverse Reactions: Allergies Allergy/AdvReac Type Severity Reaction Status Date / Time adhesive Allergy Hives Verified 09/15/23 09:15 Penicillins Allergy Rash Verified 09/15/23 08:32 atenolol AdvReac Dizziness Verified 09/15/23 08:32 epinephrine AdvReac Anxiety Verified 09/15/23 08:32 erythromycin base AdvReac Nausea Verified 09/15/23 08:32 hydrocodone [From Vicodin] AdvReac Unknown Verified 09/15/23 08:32 hydromorphone [From Dilaudid] AdvReac Dizziness Verified 09/15/23 08:32 phenylephrine AdvReac Anxiety Verified 09/15/23 08:32 procaine [From Novocain] AdvReac Anxiety Verified 09/15/23 08:32 propoxyphene [From Darvon] AdvReac Unknown Verified 09/15/23 08:32 sertraline [From Zoloft] AdvReac Cramps Verified 09/15/23 08:32 Sulfa (Sulfonamide AdvReac Edema Verified 09/15/23 08:32 Antibiotics) - Social History Does the pt smoke?: No Smoking Status: Never smoker Does the pt drink ETOH?: Yes Does the pt have substance abuse?: No - Immunizations Immunizations are current?: Yes PD ED PE NORMAL - Vitals Vital signs reviewed: Yes - General General: Alert and oriented X 3, No acute distress, Well developed/nourished - HEENT HEENT: Atraumatic, PERRL, EOMI, Ears normal, Moist mucous membranes, Pharynx benign - Neck Neck: Supple, no meningeal sign - Cardiac Cardiac: Strong equal pulses, Other (TACHCYARDIA) - Respiratory Respiratory: No respiratory distress, Clear bilaterally - Abdomen Abdomen: Soft, Non tender, Non distended - Derm Derm: Warm and dry, No rash, Other - Extremities Extremities: No deformity, No tenderness to palpate, Normal ROM s pain, No edema - Neuro Neuro: Alert and oriented X 3, veterans contact representative 2-12 intact, No motor deficit, Normal speech - Psych Psych: Normal mood, Normal affect Results - Vitals Vitals: Oxygen O2 Source Nasal cannula - Labs Labs: Microbiology 09/15/23 09:10 Blood Culture - Final Blood - Left Hand NO GROWTH AFTER 5 DAYS 09/15/23 09:10 Blood Culture - Final Blood - Right Arm NO GROWTH AFTER 5 DAYS Laboratory Tests 09/15/23 09/15/23 09/15/23 08:45 09:10 09:10 WBC 16.6 H RBC 4.19 L Hgb 12.5 Hct 37.7 MCV 90.0 MCH 29.8 MCHC 33.2 RDW 12.7 Plt Count 235 MPV 9.4 Neut # (Auto) 14.9 H Lymph # (Auto) 0.8 L [place] # (Auto) 0.7 Eos # (Auto) 0.0 Baso # (Auto) 0.0 Absolute Nucleated RBC 0.00 Nucleated RBC % 0.0 Sodium 133 L Potassium 3.4 L Chloride 100 L Carbon Dioxide 24 Anion Gap 9.0 BUN 20 Creatinine 0.8 Estimated GFR (MDRD) 70 L Glucose 125 H Lactic Acid Calcium 8.8 Total Bilirubin 0.5 AST 11 ALT 9 L Alkaline Phosphatase 63 Total Protein 7.2 Albumin 3.8 Globulin 3.4 Albumin/Globulin Ratio 1.1 Urine Color YELLOW Urine Clarity CLEAR Urine pH 6.0 Ur Specific [place] 1.020 Urine Protein NEGATIVE Urine Glucose (UA) NEGATIVE Urine Ketones TRACE Urine Occult Blood TRACE-INTA Urine Nitrite NEGATIVE Urine Bilirubin NEGATIVE Urine Urobilinogen 0.2 (NORMAL) Ur Leukocyte Esterase SMALL H Urine RBC 0-5 Urine WBC 6-10 H Ur Squamous Epith Cells MOD Squamous H Urine Bacteria Rare Urine Culture Comments NOT INDICATED Nasal Adenovirus (PCR) Nasal B. parapertussis DNA (PCR) Nasal Coronavir 229E PCR Nasal Coronavir HKU1 PCR Nasal Coronavir NL63 PCR Nasal Coronavir OC43 PCR Nasal Enterovir/Rhinovir PCR Nasal Influenza B PCR Nasal Influenza A PCR Nasal Parainfluen 1 PCR Nasal Parainfluen 2 PCR Nasal Parainfluen 3 PCR Nasal Parainfluen 4 PCR Nasal RSV (PCR) Nasal B.pertussis DNA PCR Nasal C.pneumoniae (PCR) [place] Human Metapneumo PCR Nasal M.pneumoniae (PCR) Nasal SARS-CoV-2 (PCR) 09/15/23 09/15/23 09:10 09:11 WBC RBC Hgb Hct MCV MCH MCHC RDW Plt Count MPV Neut # (Auto) Lymph # (Auto) [place] # (Auto) Eos # (Auto) Baso # (Auto) Absolute Nucleated RBC Nucleated RBC % Sodium Potassium Chloride Carbon Dioxide Anion Gap BUN Creatinine Estimated GFR (MDRD) Glucose Lactic Acid 0.9 Calcium Total Bilirubin AST ALT Alkaline Phosphatase Total Protein Albumin Globulin Albumin/Globulin Ratio Urine Color Urine Clarity Urine pH Ur Specific [place] Urine Protein Urine Glucose (UA) Urine Ketones Urine Occult Blood Urine Nitrite Urine Bilirubin Urine Urobilinogen Ur Leukocyte Esterase Urine RBC Urine WBC Ur Squamous Epith Cells Urine Bacteria Urine Culture Comments Nasal Adenovirus (PCR) NOT DETECTED Nasal B. parapertussis DNA (PCR) NOT DETECTED Nasal Coronavir 229E PCR NOT DETECTED Nasal Coronavir HKU1 PCR NOT DETECTED Nasal Coronavir NL63 PCR NOT DETECTED Nasal Coronavir OC43 PCR NOT DETECTED Nasal Enterovir/Rhinovir PCR NOT DETECTED Nasal Influenza B PCR NOT DETECTED Nasal Influenza A PCR NOT DETECTED Nasal Parainfluen 1 PCR NOT DETECTED Nasal Parainfluen 2 PCR NOT DETECTED Nasal Parainfluen 3 PCR NOT DETECTED Nasal Parainfluen 4 PCR NOT DETECTED Nasal RSV (PCR) NOT DETECTED Nasal B.pertussis DNA PCR NOT DETECTED Nasal C.pneumoniae (PCR) NOT DETECTED [place] Human Metapneumo PCR NOT DETECTED Nasal M.pneumoniae (PCR) NOT DETECTED Nasal SARS-CoV-2 (PCR) NOT DETECTED PD Medical Decision Making - ED course Complexity details: reviewed results, re-evaluated patient, considered differential, d/w patient ED course: Several days of feeling poorly, worse in the last several days. Patient does have redness over her face especially the cheeks and forehead. Since patient states this started after popping a blister or pimple on her nose I suspect cellulitis. Laboratory work reviewed, mild WBC elevation, other laboratory work within normal limits. Patient started on antibiotics and first dose given in the emergency department. Patient counseled on results of ED workup and recommended course of antibiotics. Counseled to monitor her face for signs of extent of the cellulitis. Departure - Departure Disposition: 01 Home, Self Care Clinical Impression: Facial cellulitis Condition: Stable Instructions: ED Cellulitis Facial Prescriptions: Clindamycin [Cleocin] 450 mg PO TID 7 Days #63 cap Comments: Finish all of your antibiotics as prescribed even if you are feeling better. You may take Tylenol and ibuprofen for discomfort. Keep an eye on the area of redness on your face. If it spreads despite taking antibiotics please return to the emergency department for repeat evaluation. Forms: PCP List Discharge Date/Time: 09/15/23 13:53
--- NOTE | 2023-09-15 09:27 | XRAY Report ---
PROCEDURE: Chest 1V INDICATIONS: Sepsis TECHNIQUE: One view of the chest was acquired. COMPARISON: 03/04/2017. FINDINGS: Surgical changes and devices: None. Lungs and pleura: No pleural effusions or pneumothorax. Lungs are clear. Mediastinum: Mediastinal contours appear normal. Heart size is normal. Bones and chest wall: No suspicious bony lesions. Overlying soft tissues appear unremarkable. IMPRESSION: No acute cardiopulmonary process. Reviewed by: Elmer Flores MD on 09/15/2023 9:25 AM PDT Approved by: Elmer Flores MD on 09/15/2023 9:25 AM PDT Station ID: [id number]
[2023-09-15 09:28] LABS: CLARITY,URINE CLEAR (CLEAR); RBC,URINE 0-5 /HPF (0-5)
[2023-09-15 09:29] LABS: BACTERIA,URINE Rare /HPF (None Seen); SQUAMOUS EPITHELIAL CELL,UR MOD Squamous (<= Few)
[2023-09-15 09:34] LABS: ALBUMIN 3.8 g/dL (3.2-5.5); ALBUMIN/GLOBULIN RATIO 1.1 (1.0-2.2); BILIRUBIN,TOTAL 0.5 mg/dL (0.2-1.0); CALCIUM 8.8 mg/dL (8.5-10.3); CREATININE 0.8 mg/dL (0.6-1.3); POTASSIUM 3.4 mmol/L (3.5-4.5); TOTAL PROTEIN 7.2 g/dL (6.4-8.9)
[2023-09-15] MEDS: VANCOMYCIN INJ 1.25 GM in SODIUM CHLORIDE 0.9% 500 ML IV STA (09:35)
[2023-09-15 10:07] LABS: B. PARAPERTUSSIS- RESP PCR PAN NOT DETECTED; B. PERTUSSIS- RESP PCR PANEL NOT DETECTED; C. PNEUMONIAE- RESP PCR PANEL NOT DETECTED; CORONAVIRUS 229E-RESP PCR NOT DETECTED; CORONAVIRUS HKU1-RESP PCR NOT DETECTED; CORONAVIRUS NL63-RESP PCR NOT DETECTED; CORONAVIRUS OC43-RESP PCR NOT DETECTED; HUMAN METAPNEUMOVIRUS NOT DETECTED; INFLUENZA A- RESP PCR PANEL NOT DETECTED; INFLUENZA B - RESP PCR PANEL NOT DETECTED; M. PNEUMONIAE- RESP PCR PANEL NOT DETECTED; PARAINFLUENZA VIRUS 1 NOT DETECTED; PARAINFLUENZA VIRUS 2 NOT DETECTED; PARAINFLUENZA VIRUS 3 NOT DETECTED; PARAINFLUENZA VIRUS 4 NOT DETECTED; RHINOVIRUS/ENTEROVIRUS NOT DETECTED; RSV- RESP PCR PANEL NOT DETECTED; SARS-CoV-2 -RESP PCR PANEL NOT DETECTED
[2023-09-15 13:47] VITALS: BP 159/73; O2SAT 94
== END 2023-09-15 13:53 | disposition home or self-care (01) ==
LOC: EDUNIT# → ED 08:23
DX: L03.211 Cellulitis of face (principal); I10 Essential (primary) hypertension; E78.00 Pure hypercholesterolemia, unspecified; Z79.899 Other long term (current) drug therapy; Z79.82 Long term (current) use of aspirin
CPT/HCPCS: 36415; 71045; 80053; 81001; 83605; 85025; 87040; 87633; 93005; 96365; 96366; 96375; 99284; J3370; 87086

== ENCOUNTER 2023-10-11 14:46 | Outpatient (CLI) | payer MEDICARE ==
--- NOTE | 2023-10-11 20:25 | DEXA Report ---
PROCEDURE: Dexa Spine and/or Hip INDICATIONS: POST MENOPAUSAL/OSTEOPENIA TECHNIQUE: Dual energy x-ray absorptiometry (DXA) was performed on a Geron System. Regions measur ed are the AP Spine, femoral neck, and if needed forearm. COMPARISON: 01/22/2021 FINDINGS: Lumbar Spine: Bone Mineral Density: 1.074 g/cm/cm,T score: -0.9. Since the most recent prior study, there has been a statistically significant increase in bone mineral density by 1.3 percent. Left Femoral Neck: Bone Mineral Density: 0.751 g/cm/cm, T score: -2.1. Left Hip: Bone Mineral Density: 0.901 g/cm/cm,T score: -0.8. Since the most recent prior study, there has been a statistically significant decrease in bone mineral density by 0.6 percent. (T score greater or equal to -1.0: NORMAL) (T score from -1.1 to -2.4: OSTEOPENIA) (T score less than or equal to -2.5 to: OSTEOPOROSIS) Impression: By WHO criteria, this patient has low bone density (osteopenia). Interval statistical increase in bone mineral density of the lumbar spine. Interval statistical decre ase in bone mineral density of the hip. Patients with diagnosis of osteoporosis or osteopenia should have regular bone mineral density assess ment. For those eligible for Medicare, routine testing is allowed once every 2 years. Testing frequ ency can be increased for patients who have rapidly progressing disease or for those who are receivin g medical therapy to restore bone mass. Reviewed by: Emroy Hogue MD on 10/11/2023 8:24 PM PDT Approved by: Emory Hogue MD on 10/11/2023 8:24 PM PDT Station ID: [id number]
== END 2023-10-11 14:47 | disposition home or self-care (01) ==
LOC: DI 14:46
PROVIDERS: ATTEND Nurse Practitioner Family
DX: M85.88 Other specified disorders of bone density and structure, other site (principal); Z78.0 Asymptomatic menopausal state

== ENCOUNTER 2023-10-19 14:51 | Outpatient (CLI) | payer MEDICARE ==
--- NOTE | 2023-10-21 10:44 | Mammography Report ---
BILATERAL DIGITAL SCREENING MAMMOGRAM 3D/2D: 10/19/2023 CLINICAL: Routine screening. Comparison is made to exams dated: 05/07/2022 mammogram, 01/16/2021 mammogram, 06/14/2019 mammogram, 05/13 mammogram, 07/01/2015 mammogram, and 03/22/2014 mammogram - [facility]. There are scattered areas of fibroglandular density in both breasts (category b / 25%-50% glandular t issue). No significant masses, calcifications, or other findings are seen in either breast. There has been no significant interval change. IMPRESSION: NEGATIVE There is no mammographic evidence of malignancy. A 1 year screening mammogram is recommended. Based on the Tyrer Cuzick model (a risk assessment model) the patient's lifetime risk is 2.2% and her 10 year risk is 0.0%. According to the ACR, ACS, and NCCN guidelines, an annual breast MRI exam robyn g with mammogram is recommended if the patient's lifetime risk is 20% or greater. This exam was interpreted at Station ID: [id number]. NOTE: For mammograms, a report in lay terms will be sent to the patient. Approximately 15% of breast malignancies will not be visualized mammographically. In the management of a palpable breast mass, a negative mammogram must not discourage biopsy of a clinically suspicious lesion. Electronically Signed By: Rubi watson/eyad:10/20/2023 10:32:49 letter sent: No_Letter ACR BI-RADS Category 1: Negative 3341F PARENCHYMAL PATTERN: (A) - The breast(s) demonstrate(s) scattered fibroglandular densities. BI-RADS CATEGORY: (1) - 1 RECOMMENDATION: (ANNUAL) - Recommend routine annual screening mammography. [id number] 1 year screening LATERALITY: (B)
== END 2023-10-19 14:52 | disposition home or self-care (01) ==
LOC: DI 14:51
DX: Z12.31 Encounter for screening mammogram for malignant neoplasm of breast (principal); R92.323 Mammographic fibroglandular density, bilateral breasts